=== PATIENT | female | born 2000 | race American Indian/Alaskan Native ===

== ENCOUNTER 2021-05-19 15:23 | Emergency (ER) | payer SELFPAY ==
[2021-05-19] MEDS ORDERED: PENICILLIN G BENZATHINE 1.2 MILLION UNIT/2 ML INJ IM STA (18:57)
--- NOTE | 2021-05-19 19:18 | Emergency Department Report ---
ED ENT HPI - General Chief complaint: Sore Throat Stated complaint: THROAT PAINS Time Seen by Provider: 05/19/21 18:51 Source: patient Mode of arrival: Ambulatory Limitations: No Limitations - History of Present Illness Initial comments: 21-year-old female is well department 3 to 4-day history of progressive worsening of the odynophagia sore throat with red swollen with some fever sensation she reports no nausea, no vomiting, no chest pain no palpitations no sweats or chills. MD complaint: tooth pain Location: throat Severity: mild, moderate Quality: dull Consistency: constant Worsens with: none Associated Symptoms: sore throat - Related Data Previous Rx's Medication Instructions Recorded Last Taken Type Ibuprofen [Motrin] 600 mg PO Q8H #30 tablet 05/21/13 Unknown Rx Allergies Allergy/AdvReac Type Severity Reaction Status Date / Time No Known Allergies Allergy Unverified 05/20/13 21:11 ED Dental HPI - General Chief complaint: Sore Throat Stated complaint: THROAT PAINS Time Seen by Provider: 05/19/21 18:51 Source: patient Mode of arrival: Ambulatory Limitations: No Limitations - Related Data Previous Rx's Medication Instructions Recorded Last Taken Type Ibuprofen [Motrin] 600 mg PO Q8H #30 tablet 05/21/13 Unknown Rx Allergies Allergy/AdvReac Type Severity Reaction Status Date / Time No Known Allergies Allergy Unverified 05/20/13 21:11 ED Review of Systems ROS: Stated complaint: THROAT PAINS Other details as noted in HPI ED Past Medical Hx - Past Medical History Previous Medical History?: No - Surgical History Past Surgical History?: No - Social History Smoking Status: Never Smoker - Medications Home Medications: Home Medications Medication Instructions Recorded Confirmed Last Taken Type Ibuprofen [Motrin] 600 mg PO Q8H #30 tablet 05/21/13 Unknown Rx ED Physical Exam - General Limitations: No Limitations ED Course Vital Signs 05/19/21 18:22 Temperature 98.3 F Pulse Rate 67 Respiratory 18 Rate Blood Pressure 124/75 O2 Sat by Pulse 100 Oximetry ED Medical Decision Making - Medical Decision Making 21 with no history of any compromised nontoxic appearance patient is euvolemic with no trismus no airway compromise unable to tolerate p.o. given history and examination low suspicion for this presentation being caused by peritonsillar abscess, [place], bacterial tracheitis, acute HIV, epiglottitis, retropharyngeal abscess. Treatment shot of Bicillin IM x1 and appropriate follow-up Critical care attestation.: If time is entered above; I have spent that time in minutes in the direct care of this critically ill patient, excluding procedure time. ED Disposition Clinical Impression: Pharyngitis Disposition: 01 HOME / SELF CARE / HOMELESS Is pt being admited?: No Does the pt Need Aspirin: No Condition: Stable Instructions: Strep Throat, Adult, [id number], Sore Throat, [id number], Pharyngitis Additional Instructions: Seen emergency department today for pharyngitis and treated accordingly with injection of Bicillin LA please change your toothbrush in May you maintain Tylenol and Motrin as needed for your pain and temperature you may also use any throat lozenges [id number] to help soothe your throat discomfort Referrals: PRIMARY CARE, [Primary Care Provider] - 3-5 Days [facility] [Provider Group] - 3-5 Days
[2021-05-19 20:08] VITALS: BP 136/64
== END 2021-05-19 20:09 | disposition home or self-care (01) ==
LOC: ED 15:23
DX: J02.9 Acute pharyngitis, unspecified (principal)
CPT/HCPCS: 96372; 99282; J0561